=== PATIENT | male | born 1990 | race Caucasian/White ===

== ENCOUNTER → 2017-07-19 | Outpatient (CLI) | payer OTHER | LOC: BMCIMAGING 11:24 | PROVIDERS: ATTEND Physician Assistant Medical | DX: M79.641 Pain in right hand (principal) ==

== ENCOUNTER → 2017-12-09 | Outpatient (CLI) | payer OTHER | LOC: BMCIMAGING 15:35 | PROVIDERS: ATTEND Physician Assistant Medical | DX: M79.662 Pain in left lower leg (principal) ==

== ENCOUNTER 2017-12-14 17:37 | Emergency (ER) | payer OTHER ==
[2017-12-14 17:46] VITALS: BP 139/87
[2017-12-14] MEDS ORDERED: RABIES IMMUNE GLOBULIN/PF 300 UNIT/ML VIAL IF ONE (18:11)
[2017-12-14] MEDS ORDERED: RABIES VACC, HUMAN DIPLOID/PF 2.5 UNIT VIAL (RABAVERT) IM ONE (18:11)
--- NOTE | 2017-12-14 18:16 | EDPHY ---
H & P Stated Complaint: Dog bite R knee 1 week ago-would like to discuss Rabies issue Time Seen by Provider: 12/14/17 18:11 HPI/ROS: HPI: This is a 27-year-old male who presents with Chief Complaint: Dog bite R knee 1 week ago-would like to discuss Rabies issue Location: Right thigh Quality: Dog bite Duration: 7 days ago Signs and Symptoms:+ bruising, no radiation, no weakness, no paresthesias, no decreased range of motion, no drainage Timing: Acute Severity: Mild Context: Patient was at [employer] approximately 7 days ago with his dog when another dog which is a husky lunged at his dog any tried to break a month. The Husky bit his right thigh, medial aspect. He felt immediate, constant, moderate pain. He wash the wound thoroughly when he returned home. The waste disposal leakage tester of the dog quickly left the dog park. He is unsure of who the waste disposal leakage tester was and if the dog was vaccinated. He went to see his primary care provider today who recommended rabies vaccination. His primary care provider [facility] and they have recommended rabies vaccination. Patient's tetanus is current. Modifying Factors: Local wound Comment: ROS: A comprehensive 10 system review of systems is otherwise negative aside from elements mentioned in the history of present illness. MEDICAL/SURGICAL/SOCIAL HISTORY: Medical history: Anxiety. Does not take any regular medications. Surgical history: Denies Social history: Nonsmoker Family history noncontributory. CONSTITUTIONAL: Slightly anxious polite and cooperative well-appearing adult white male, awake and alert, no obvious distress HEENT: Atraumatic and normocephalic. NECK: supple EXTREMITIES: 2/2 pulses, strength 5/5, right medial thigh above the knee shows 4 in annular area of yellowish green ecchymosis but no puncture wound, no laceration, no erythema, no discharge, no fluctuance, no warmth. DIP/PIP/MCP flexion/extension intact with good light touch sensation. no deformities, no clubbing, no cyanosis or edema. NEUROLOGICAL: no focal neuro deficits. GCS 15. Light touch sensation intact. SKIN: Warm and dry, no erythema. no rash. Good capillary refill. Source: Patient Exam Limitations: No limitations - Personal History Current Tetanus/Diphtheria Vaccine: Yes Current Tetanus Diphtheria and Acellular Pertussis (TDAP): Yes Tetanus Vaccine Date: 2013 - Medical/Surgical History Hx Asthma: No Hx Chronic Respiratory Disease: No Hx Diabetes: No Hx Cardiac Disease: No Hx Renal Disease: No Hx Cirrhosis: No Hx Alcoholism: No Hx HIV/AIDS: No Hx Splenectomy or Spleen Trauma: No Other PMH: denies - Social History Smoking Status: Never smoked Constitutional: Initial Vital Signs Temperature (C) 36.7 C 12/14/17 17:43 Heart Rate 81 12/14/17 17:43 Respiratory Rate 16 12/14/17 17:43 Blood Pressure 139/87 H 12/14/17 17:43 O2 Sat (%) 97 12/14/17 17:43 O2 Delivery Mode Room Air Allergies/Adverse Reactions: No Known Allergies Allergy (Unverified 12/14/17 17:42) Home Medications: Medication Instructions Recorded NK [No Known Home Meds] 12/14/17 Medical Decision Making ED Course/Re-evaluation: Vital signs reviewed and stable upon arrival. Tetanus is current. Patient is immunocompetent and has not received vaccination in the past. Animal Control notified. Given rabies vaccine 1 mL IM day 0 and rabies immunoglobulin 20 International Units/kg given No signs of neurovascular compromise/tenting of skin/compartment syndrome/ extremities and joints examined above and below area of concern and are neurovascularly intact/cellulitis. This patient was seen under the supervision of my secondary supervising physician. I evaluated care for this patient independently. Discussed this patient with Dr. Shabazz. Differential Diagnosis: Differential diagnosis includes dog bite, cellulitis, rabies vaccination. Departure - Departure Disposition: Home, Routine, Self-Care Clinical Impression: Dog bite of right thigh without complication Qualifiers: Encounter type: initial encounter Qualified Code(s): S71.151A - Open bite, right thigh, initial encounter; W54.0XXA - Bitten by dog, initial encounter; W54.0XXA - Bitten by dog, initial encounter Condition: Good Instructions: Animal Bite (ED), Rabies Vaccine (By injection), Rabies Immune Globulin (By injection) Additional Instructions: Please follow-up with Infectious Disease for rabies vaccine. He received vaccine on day 0 which is today. You are to receive vaccine on day 3, day 7, and day 14. Referrals: Dalila Bojorquez MD [Primary Care Provider] - As per Instructions Denisa Soto MD [Medical Doctor] - As per Instructions
[2017-12-14] MEDS ORDERED: RABIES IMMUNE GLOBULIN/PF 1,500 UNIT/5 ML VIAL IF ONE (18:30)
== END 2017-12-14 18:33 | disposition home or self-care (01) ==
DX: S71.151A Open bite, right thigh, initial encounter (principal); Z23 Encounter for immunization; W54.0XXA Bitten by dog, initial encounter; Y92.830 Public park as the place of occurrence of the external cause; Y93.K9 Activity, other involving animal care; Y99.9 Unspecified external cause status

== ENCOUNTER 2017-12-17 16:17 | Emergency (ER) | payer OTHER ==
[2017-12-17 16:21] VITALS: BP 146/89
[2017-12-17] MEDS ORDERED: RABIES VACC, HUMAN DIPLOID/PF 2.5 UNIT VIAL (RABAVERT) IM ONE (16:44)
--- NOTE | 2017-12-17 16:59 | EDPHY ---
H & P Time Seen by Provider: 12/17/17 16:35 HPI/ROS: CHIEF COMPLAINT: Rabies vaccination HISTORY OF PRESENT ILLNESS: Patient is a 27-year-old male who presents emergency department for his 2nd (day 3) rabies vaccination. Patient states the wound to his right leg is improving. He has no pain. Patient was given an injection his left shoulder. He has no pain at that site. He has had no reaction to the previous vaccination or treatment. He denies any complaints. REVIEW OF SYSTEMS: 10 systems were reveiwed and are negative with the exception of the elements mentioned in the history of present illness. Past Medical/Surgical History: Anxiety Smoking Status: Never smoked Physical Exam: Vitals noted General Appearance: Alert and no distress. Head: Pupils equal. Normal. Respiratory: No respiratory distress. Cardiac: regular rate and rhythm. Extremities: Left deltoid is normal. No rash. The patient's right thigh has some subtle bruising. There is no swelling or redness. Full range of motion, normal appearing. Skin: No rashes or lesions. Neuro: Alert. Normal mood and affect. Constitutional: Initial Vital Signs Temperature (C) 36.6 C 12/17/17 16:18 Heart Rate 88 12/17/17 16:18 Respiratory Rate 16 12/17/17 16:18 Blood Pressure 146/89 H 12/17/17 16:18 O2 Sat (%) 97 12/17/17 16:18 O2 Delivery Mode Room Air Allergies/Adverse Reactions: No Known Allergies Allergy (Unverified 12/14/17 17:42) Home Medications: Medication Instructions Recorded NK [No Known Home Meds] 12/14/17 Medical Decision Making ED Course/Re-evaluation: In the emergency department I discussed the plan with the patient. He states that he has follow-up appointment for day 7 in the clinic. He is aware that he needs vaccination on day 1, day 3, day 7 and day 14. Differential Diagnosis: My differential includes but is not limited to rabies exposure, cellulitis, medication reaction - Data Points Medications Given: Discontinued Medications Rabies Vaccine Human Diploid Cell (Rabavert) 2.5 unit IM .ONCE ONE Stop: 12/17/17 16:45 Last Admin: 12/17/17 17:12 Dose: 2.5 unit Departure - Departure Disposition: Home, Routine, Self-Care Clinical Impression: Rabies, need for prophylactic vaccination against Condition: Good Instructions: Rabies Vaccine (ED) Additional Instructions: You need follow-up with Infectious Disease on day 7 and day 14 from the time of the bite. Referrals: Yaritza Singh PA [Primary Care Provider] - As per Instructions Denisa Soto MD [Medical Doctor] - 12/21/17
== END 2017-12-17 17:27 | disposition home or self-care (01) ==
DX: Z23 Encounter for immunization (principal)